=== PATIENT | female | born 1955 | race Caucasian/White ===

== ENCOUNTER 2017-11-01 20:31 | Emergency (ER) | payer MEDICAID ==
[~2017-11-01] VITALS: Ht 167.6 cm; Wt 77.1 kg
--- NOTE | 2017-11-01 22:01 | NUR ---
Pt C/O LOWER LEFT EXTREMITY PAIN FROM HIP TO TOE. VS STABLE. BP 136/95, HR 80, O2 98% IN RA, TEMP 98F, R 16. Pt WAITING IN ROOM COMFORTABLY.
--- NOTE | 2017-11-01 22:15 | NUR ---
BEING SEEN BY
[2017-11-01] MEDS ORDERED: MORPHINE SULFATE INJ 4 MG/ML DISP.SYRIN ONE (22:51)
[2017-11-01] MEDS ORDERED: ONDANSETRON 4 MG TAB.RAPDIS ONE (22:52)
--- NOTE | 2017-11-01 22:58 | NUR ---
MORPHINE 2MG OUT OF STOCK IN XIS. TOOK OUT MORPHINE 4MG INSTEAD AND WASTED 2MG. WITNESSED BY KAY PABON.
[2017-11-01] MEDS ORDERED: MORPHINE SULFATE INJ 2 MG/ML DISP.SYRIN IM ONE (23:00)
[2017-11-01] MEDS ORDERED: ONDANSETRON 4 MG TAB.RAPDIS SL ONE (23:00)
--- NOTE | 2017-11-01 23:00 | NUR ---
MORPHINE 2MG GIVEN IM ON LEFT ARM
--- NOTE | 2017-11-01 23:21 | NUR ---
Patient discharged to home in stable condition. Written and verbal after care instructions given. Patient verbalizes understanding of instruction. Addendum: 11/01/17 at 2321 by AGGIE Pt's SON CAME TO BIOLOGIST AIDE Pt
[2017-11-01 23:22] VITALS: BP 136/95
== END 2017-11-02 00:52 | disposition home or self-care (01) ==
LOC: ER 20:34
DX: M54.42 Lumbago with sciatica, left side (principal); Z88.6 Allergy status to analgesic agent; Z90.710 Acquired absence of both cervix and uterus
CPT/HCPCS: A4606; J2270; Q0162; Z7610

== ENCOUNTER 2017-11-04 09:13 | Emergency (ER) | payer MEDICAID ==
[~2017-11-04] VITALS: Ht 162.6 cm; Wt 74.8 kg
[2017-11-04 09:21] VITALS: BP 157/102
[2017-11-04] MEDS ORDERED: HYDROCODONE/APAP 5/325MG 1 EACH TABLET ONE (09:37)
[2017-11-04] MEDS ORDERED: HYDROCODONE/APAP 5/325MG 1 EACH TABLET PO ONE (10:00)
== END 2017-11-04 09:42 | disposition home or self-care (01) ==
LOC: ER 09:17
DX: M54.42 Lumbago with sciatica, left side (principal); Z88.6 Allergy status to analgesic agent
CPT/HCPCS: A4606; Z7610